=== PATIENT | female | born 1950 | race Asian ===

== ENCOUNTER 2024-04-08 09:00 | Outpatient (RCR) | payer MEDICARE ==
[~2024-04-08 09:00] MED LIST: ALENDRONATE SOD70 MG PO; Lisinopril PO
== END 2024-04-12 ==
LOC: OT 09:00
PROVIDERS: ATTEND Plastic Surgery
DX: M19.042 Primary osteoarthritis, left hand (principal); M19.041 Primary osteoarthritis, right hand; M79.642 Pain in left hand; M79.641 Pain in right hand; M25.532 Pain in left wrist; M25.531 Pain in right wrist
CPT/HCPCS: L3913 ×2